=== PATIENT | female | born 1970 | race Caucasian/White ===

== ENCOUNTER 2017-11-03 15:49 | Emergency (ER) | payer OTHER ==
[~2017-11-03] VITALS: Ht 172.7 cm; Wt 77.1 kg
--- NOTE | ~2017-11-03 | EKG ---
[address] [facility] [place] [address] ELECTROCARDIOGRAM REPORT Name: SIDNEY WILLETT Room #: DEP Sandra#: [id number] Admission: 11/03/17 Attend Phys: Discharge: 11/03/17 Date of : 72 Report #: [id number] THIS REPORT FOR: //name// [facility] ED Test Date: 2017-11-03 Test Time: 16:27:56 Pat Name: SIDNEY WILLETT Department: Room: Gender: F Marketing Services Coordinator: Cortez DE LEÓN : 1970 Requested By: Cinthya Shipley Order Number: [id number] MD: Chase Corrigan Measurements Intervals [place] Rate: 87 P: 72 [place]: 160 QRS: -1 QRSD: 90 T: 46 QT: 345 QTc: 415 Interpretive Statements Sinus rhythm Compared to ECG 08/25/2015 19:11:17 No significant changes Electronically Signed On 11-03-2017 19:34:46 CDT by Chase Corrigan [email or web address] <ELECTRONICALLY SIGNED> By: Chase Corrigan MD 11/03/17 1934 1627 1627 MD MICHAEL Quintana
[~2017-11-03 15:49] MED LIST: BILBERRY1 EAC1 PO; CYTOMEL 25 MCG25 MCG NG; D3-5050000 UNIT PO; DIOVAN160 MG PO; FOLBIC RF TABL1 EACH PO; GARLIC OIL1 EACH PO; HUMALOG MI100 UNIT/3 SQ; LEVEMIR SUBQ; LEVOTHYROXIN0.075 MG PO; UNICOMPLEX M TA1 TA1 PO
[2017-11-03 16:42] LABS: URINE BILIRUBIN NEGATIVE (Negative); URINE BLOOD NEGATIVE (Negative); URINE CLARITY CLEAR; URINE COLOR YELLOW; URINE GLUCOSE-RANDOM* 3+ (Negative); URINE KETONES NEGATIVE (Negative); URINE LEUKOCYTES-REFLEX NEGATIVE (Negative); URINE NITRITE-REFLEX NEGATIVE (Negative); URINE PROTEIN (DIPSTICK) NEGATIVE (Negative); URINE UROBILINOGEN 0.2 E.U./dl (0.2-1.0)
[2017-11-03 17:12] LABS: ABSOLUTE NEUTROPHILS 4.4 thou/uL (1.4-8.2); BASOPHILS 0.4 % (0.0-2.0); EOSINOPHILS 1.2 % (0.0-3.0); HEMATOCRIT 36.4 % (37.0-47.0); HEMOGLOBIN 12.1 gm/dL (12.0-15.0); LYMPHOCYTES 24.6 % (24.0-44.0); MCHC 33.2 g/dL (28.0-37.0); MCV 87.4 fL (80.0-100.0); MONOCYTES 7.2 % (1.0-8.0); PLATELET COUNT 237 thou/uL (150-400); POLYS 66.6 % (36.0-66.0); RBC 4.17 mil/uL (4.20-5.00); RDW 13.1 % (10.5-14.5); WBC 6.6 thou/uL (4.0-11.0)
[2017-11-03 17:21] LABS: ANION GAP 6 mmol/L (7-16); BUN 16 mg/dL (7-18); CALCIUM 8.6 mg/dL (8.5-10.1); CHLORIDE 101 mmol/L (98-107); CO2 29 mmol/L (21-32); GLUCOSE 373 mg/dL (74-106); SODIUM 136 mmol/L (136-145)
[2017-11-03 17:29] LABS: ALBUMIN 3.6 g/dL (3.4-5.0); LIPASE 154 U/L (73-393); SGOT 42 U/L (15-37); SGPT 55 U/L (30-65); TOTAL BILIRUBIN 0.3 mg/dL (<0.1-1.0); TROPONIN-I < 0.04 ng/mL (<0.06)
[2017-11-03 18:36] VITALS: BP 155/81
== END 2017-11-03 18:36 | disposition home or self-care (01) ==
LOC: ER 15:49
PROVIDERS: Nurse Practitioner Family
DX: E10.65 Type 1 diabetes mellitus with hyperglycemia (principal); R10.13 Epigastric pain; R53.83 Other fatigue; E03.9 Hypothyroidism, unspecified; I10 Essential (primary) hypertension

== ENCOUNTER → 2018-02-20 | Outpatient (CLI) | payer OTHER | LOC: RAD 14:18 | DX: Z12.31 Encounter for screening mammogram for malignant neoplasm of breast (principal) ==

== ENCOUNTER → 2018-02-28 | Outpatient (CLI) | payer OTHER | LOC: ULTRA 02-27 15:18 | DX: N63.20 Unspecified lump in the left breast, unspecified quadrant (principal); R92.1 Mammographic calcification found on diagnostic imaging of breast ==